=== PATIENT | female | born 1960 | race American Indian/Alaskan Native ===

== ENCOUNTER 2020-10-05 10:52 | Emergency (ER) | payer SELFPAY ==
--- NOTE | 2020-10-05 11:12 | Emergency Department Report ---
ED CPR HPI - General Stated Complaint: CARDIAC ARREST Time Seen by Provider: 10/05/20 11:06 - History of Present Illness Initial Comments: 60-year-old female, history of diabetes, recently tested Covid positive, presents to ED in cardiac arrest. EMS states patient's reported that patient was fine earlier this morning. reports that patient's mother from Covid almost 6 days ago. Patient tested positive for COVID-19 on yesterday. He states over the last couple of days patient has been somewhat altered, talking out of her head, and being restless. He states he was in the other room trying to get patient an appointment to see her doctor when he heard patient scream out. When he went in to check on patient, he states patient was convulsing. It is at this time that he called 911. Patient was unresponsive afterward. When EMS arrived, EMS reports patient initially seemed to have [place] respirations and was unresponsive. They report pupils were dilated. Patient then went into cardiac arrest, losing her pulse. Initial rhythm was PEA. Yehuda tube was placed and ACLS was initiated. EMS reports patient went into asystole. She has been given epi x3 doses. Patient is in continued arrest upon ED arrival. MD Complaint: found unresponsive Place: home Initial Findings in the Field: unresponsive, agonal ROSC in the Field: No Treatments Prior to Arrival: other airway device (Yehuda tube), chest compressions, epinephrine mgs # (x3) - Related Data Allergies Allergy/AdvReac Type Severity Reaction Status Date / Time Unable to Assess Allergy Unverified 10/05/20 11:11 ED Review of Systems ROS: Stated complaint: CARDIAC ARREST Other details as noted in HPI Comment: Unobtainable due to pts medical conditions ED Physical Exam - General General appearance: obtunded - Head Head exam: Present: atraumatic, normocephalic - Eye Pupils: Present: other (Fixed and dilated bilaterally) - ENT ENT exam: Present: other (Yehuda tube in place) - Neck Neck exam: Present: normal inspection - Respiratory Respiratory exam: Present: other (No spontaneous breaths) - Cardiovascular Cardiovascular Exam: Present: other (No palpable pulse) - GI/Abdominal GI/Abdominal exam: Present: soft. Absent: distended - Extremities Exam Extremities exam: Present: normal inspection - Neurological Exam Neurological exam: Present: other (GCS 3) - Skin Skin exam: Present: warm, dry, intact, normal color ED Medical Decision Making - Medical Decision Making 60-year-old female, Covid positive, presents to the ED in cardiac arrest. Code was run according to ACLS protocol. Please see nurses notes for details. Unfortunately, we did not obtain ROSC. Time of 11:00 AM Critical care attestation.: If time is entered above; I have spent that time in minutes in the direct care of this critically ill patient, excluding procedure time. ED Disposition Clinical Impression: Cardiac arrest Disposition: DC-20 Is pt being admited?: No Condition: Stable Time of Disposition: 11:15
[2020-10-05] MEDS ORDERED: NALOXONE 2 MG/2 ML INJ ONE (12:00)
== END 2020-10-05 13:13 ==
LOC: ED 10:52
DX: I46.9 Cardiac arrest, cause unspecified (principal)
CPT/HCPCS: 92950; 99285; J2310